=== PATIENT | female | born 1930 | race Caucasian/White ===

== ENCOUNTER → 2018-02-17 | Day surgery (SDC) | payer OTHER, BC ==
--- NOTE | 2018-02-17 21:21 | OP ---
DATE OF OPERATION: 02/17/2018 PREOPERATIVE DIAGNOSIS: Left breast mass, 7 o'clock, 5-6 cm from the nipple. POSTOPERATIVE DIAGNOSIS: Left breast mass, 7 o'clock, 5-6 cm from the nipple. PROCEDURE: Left ultrasound-guided core biopsy with clip placement. ANESTHESIA: Local. ATTENDING SURGEON: Gerson Kruse MD ESTIMATED BLOOD LOSS: Minimal. COMPLICATIONS: None. DESCRIPTION OF PROCEDURE: Patient was made aware of the risks and benefits of the procedure and consented. She was placed in supine position, and under sterile conditions with 1% lidocaine for local anesthesia, a small parish was made in the skin. Using a 13-gauge suction biopsy device via lateral approach under ultrasound guidance, multiple cores were obtained and submitted to Pathology. Likewise, under ultrasound guidance, a clip was placed into the biopsy region. Steri-Strips and sterile bandage were applied. Patient tolerated the procedure well. We will contact her with results. GERSON KRUSE M.D. [id number]
--- NOTE | 2018-02-19 12:39 | PATH ---
Surgical Pathology Report Patient Name: RAFAEL LU [facility] Rec. #: [id number] /Age/Gender: 1930 (Age: 87) / F Account: [id number] Location: Taken: 02/17/2018 Received: 02/17/2018 Reported: 02/19/2018 Physicians: Nitza Vences M.D. Alvin Chisolm, M.D. 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 Comment: Immunohistochemical stain performed and interpreted at [facility] show the carcinoma is negative for E-Cadherin, supportive of lobular phenotype. Results of Estrogen Receptor (ER) and Progesterone Receptor (TN) studies performed on block "1" at [facility] are as follows: ER (clone [id number] mouse monoclonal antibody by [employer]): >95% nuclear staining with strong intensity (Positive). TN (clone16 mouse monoclonal antibody by [employer]): ~35-40% nuclear staining with moderate to strong intensity (Positive). Positive and negative controls (internal if applicable) show appropriate results. Formalin fixation and cold ischemic times are within current ASCO/CAP recommendations for ER, TN and Her2 testing. Her2 (IHC) & Ki-67 studies are pending and will be reported separately. Electronically Signed Jackelin Malin M.D. Addendum Reported: 02/20/2018 Addendum Diagnosis Results of Her2 (IHC) & Ki-67 studies performed on block "1" at [place], [place] ([id number]) are as follows: Her2 IHC (EP3 from [employer], formerly known as [id number], using [employer] Polymer Refine detection kit): 1+ (Negative). Ki-67: ~20% (Intermediate proliferative index). Positive and negative controls (internal if applicable) show appropriate results. Jackelin Malin M.D. Gross Description Received in formalin labeled "left breast biopsy 7:00, 5-6 cm fn," is a 1.7 x 1.2 x 0.2 cm aggregate of chamorro-yellow, irregular to cylindrical portions of fibroadipose tissue. The formalin is filtered and the specimen is entirely submitted in one cassette. Time to formalin fixation: Less than one minute Total formalin fixation time: Approximately 6 hours. 02/17/2018 [facility]02/17/2018
== END | disposition home or self-care (01) ==
LOC: FRADUS-SUR 13:24
PROVIDERS: ATTEND Surgery Surgical Oncology
PROC: 0HBU3ZX Excision of Left Breast, Percutaneous Approach, Diagnostic (ICD-10-PCS; principal; 2018-02-17)
DX: C50.512 Malignant neoplasm of lower-outer quadrant of left female breast (principal); Z17.0 Estrogen receptor positive status [ER+]; N63.23 Unspecified lump in the left breast, lower outer quadrant
CPT/HCPCS: 19083; 88305-TC; 88342-TC

== ENCOUNTER 2018-03-25 08:05 | Inpatient (IN) | payer OTHER, BC ==
--- NOTE | 2018-03-18 10:18 | HP ---
Admitting History and Physical - Primary Care Physician PCP: Janak Lock - Admission Chief Complaint: left breast cancer History of Present Illness: Patient is an 87 yo female noted to incidentally have a left breast mass during a CT scan done for abdominal pain. The patient had a highly suspicious mass on mammo and US at the left 8 oclock position. The patient underwent a left US guided core bx which was positive for invasive lobular carcinoma ER pos GA pos Her 2 negative. The MRI was c/w known cancer without contralateral or multifocal dz. Patient is presenting for a left breast WE with snbx, lymph, possible ANDx. 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)), Squamous Cell Home Medications - Allergies Allergies/Adverse Reactions: Allergies Allergy/AdvReac Type Severity Reaction Status Date / Time No Known Allergies Allergy Verified 03/18/18 10:21 - Home Medications Home Medications: Ambulatory Orders Aspirin/Dipyridamole [Aspirin-Dipyridam ER 25-200 mg] 1 each PO BID 03/20/18 Calcium Carbonate/Vitamin D3 [Calcium 600 + D3 Softgel] 1 each PO BID 03/20/18 Citalopram Hydrobromide [Citalopram HBr] 40 mg PO DAILY 03/20/18 Docusate Sodium [Colace] 100 mg PO BID PRN 03/20/18 Donepezil HCl [Aricept] 10 mg PO DAILY 03/20/18 Glucosamine Sulfate Dipot Chlr [Glucosamine] 1,000 mg PO BID 03/20/18 Meclizine HCl [Antivert -] 25 mg PO TID PRN 03/20/18 Metoprolol Succinate 25 mg PO DAILY 03/20/18 Pantoprazole Sodium 40 mg PO DAILY 03/20/18 Sennosides [Senna] 17.2 mg PO HS PRN 03/20/18 Family Disease History - Family Disease History Family Disease History: CA: Mother (colorectal cancer at 56) Review of Systems - Review of Systems Constitutional: reports: No Symptoms Physical Examination Constitutional: Yes: Well Nourished, Calm Breast(s): Yes: Other (Ptotic C-cup breasts without skin changes or nipple discharge. Palpable left 6 oclock 2 cm mass without any other suspicious masses or adenopathy noted bilaterally.) Problem List - Problems (1) Breast cancer, left Code(s): C50.912 - MALIGNANT NEOPLASM OF UNSPECIFIED SITE OF LEFT FEMALE BREAST Qualifiers: Estrogen receptor status: positive Patient sex: female Assessment/Plan Plan: Left breast WE with snbx, possible andx with lymphoscintogram and nl
[2018-03-20 13:47] VITALS: BMI 26.5
[2018-03-25] MEDS ORDERED: SUCCINYLCHOLINE CHLORIDE 200 MG/10 ML VIAL ONE (14:34)
[2018-03-25] MEDS ORDERED: PROPOFOL 20 ML ONE (14:34)
[2018-03-25] MEDS ORDERED: fentaNYL CITRATE 250 MCG/5 ML VIAL ONE (14:34)
[2018-03-25] MEDS ORDERED: ceFAZolin SODIUM 1 GM VIAL ONE (14:35)
[2018-03-25] MEDS ORDERED: LIDOCAINE HCL/PF 2% SDV 5ML VIAL ONE (14:35)
[2018-03-25] MEDS ORDERED: MIDAZOLAM HCL 2 MG/2 ML SINGLE DOSE VIAL ONE (14:35)
[2018-03-25] MEDS ORDERED: DEXAMETHASONE SOD PHOSPHATE 4 MG/1 ML VIAL ONE (14:35)
[2018-03-25] MEDS ORDERED: ONDANSETRON 4 MG/2 ML VIAL ONE (14:35)
[2018-03-25] MEDS ORDERED: ONDANSETRON 4 MG/2 ML VIAL IVPB PRN (14:44)
[2018-03-25] MEDS ORDERED: oxyCODONE HCL 5 MG TABLET PO PRN (14:44)
[2018-03-25] MEDS ORDERED: SENNOSIDES 8.6MG TABLET (FP) PO PRN (14:46)
[2018-03-25] MEDS ORDERED: DOCUSATE SODIUM 100 MG CAPSULE (FP) PO PRN (14:46)
[2018-03-25] MEDS ORDERED: MECLIZINE HCL 25 MG TABLET (FP) PO PRN (14:46)
[2018-03-25] MEDS ORDERED: LIDOCAINE 1%/EPI 1:100000 (20 ML MULTI DOSE VIAL) ONE (15:26)
[2018-03-25] MEDS ORDERED: BUPIVACAINE HCL/PF 2.5 MG/ML - 30 ML VIAL IJ ONE (15:26)
[2018-03-25] MEDS ORDERED: LIDOCAINE HCL 1% PRESERVATIVE FREE - 30ML VIAL ONE (15:26)
[2018-03-25] MEDS ORDERED: GUM MASTIC/STORAX/MSAL/ALCOHOL 1 DRP DROPSBTL MC ONE (15:26)
[2018-03-25] MEDS ORDERED: ISOSULFAN BLUE 10 MG/ML VIAL SQ ONE (15:42)
[2018-03-25] MEDS ORDERED: ePHEDrine SULFATE 50 MG/1 ML AMPULE ONE (16:15)
[2018-03-25] MEDS ORDERED: DEXTROSE 5%-0.45% SALINE 1,000 ML IV SCH (17:00)
[2018-03-25] MEDS ORDERED: ONDANSETRON 4 MG/2 ML VIAL IVPUSH PRN (17:44)
[2018-03-25] MEDS ORDERED: LACTATED RINGERS SOLUTION 1,000 ML IV SCH (17:45)
[2018-03-25] MEDS ORDERED: ACETAMINOPHEN 325 MG TABLET (FP) ONE (18:10)
[2018-03-25] MEDS ORDERED: ACETAMINOPHEN 325 MG TABLET (FP) PO ONE (18:14)
[2018-03-25] MEDS ORDERED: PATIENT'S OWN MEDICATION (NON-FORMULARY) (Glucosamine Sulfate Dipot Chlr [Glucosamine] 1,0 PO SCH (22:00)
--- NOTE | 2018-03-25 23:50 | OP ---
DATE OF OPERATION: 03/25/2018 PREOPERATIVE DIAGNOSIS: Left breast cancer at 6 o'clock overlapping region. POSTOPERATIVE DIAGNOSIS: Left breast cancer at 6 o'clock overlapping region. PROCEDURE: Left breast partial mastectomy with mammographic needle localization and left axillary sentinel lymph node biopsy with tissue transfer closure 6 x 8 cm. PRIMARY SURGEON: Marily Lock MD CUSTOMER ASSOCIATE: CISCO Charles COMPLICATIONS: There were no complications. BRIEFLY: The patient is an 87-year-old, G1, P0, postmenopausal white female who has no family history of breast or ovarian cancer. The patient has a history of TIAs. She underwent a routine CAT scan, which showed a mass in the left breast measuring about 2.4 cm as well as a pancreatic mass. Mammography confirmed a suspicious mass in the 6 o'clock region of the left breast, measuring about 2 cm. MRI showed a 3-cm density in the left breast 6 o'clock region. The right breast was negative. Ultrasound-guided core biopsy of the left breast mass showed an infiltrating lobular cancer which was ER/IA-positive, HER2-negative with a Ki-67 of 20%. The patient was advised undergoing a wide excision. It was decided to hold off on workup of the pancreatic mass for now until the breast cancer was completed. The patient was advised of undergoing a partial mastectomy with sentinel lymph node biopsy. She was brought in for the procedure on March 25, 2018. DESCRIPTION OF PROCEDURE: She first underwent a lymphoscintigraphy at [facility] and a needle localization and was brought to the [facility] holding area. In the holding area, site verification was made and informed consent was obtained. She was brought into the operating room and placed on the OR table in the supine position. Venodynes were placed on the lower extremities prior to induction. She received 1 g of Ancef prior to incision. The left breast was sterilely prepped and draped in the usual fashion with the left arm prepped in the field and 3 mL of Lymphazurin blue were injected intradermally and carolina-tumor around the needle localization site. Massage was instituted. An incision was made just below the hair-bearing area of the left axilla and dissection was undertaken and the blue lymphatic was easily seen coursing to a blue hot node in the level 1 region of the left axilla with a 10-second gamma count of 5129. This was sent in formalin for permanent pathology. A second hot node was found in the level 1 region of the left axilla with a 10-second gamma count of 853. No other hot or blue nodes were found. The second node was also sent separately a sentinel lymph node number 2 in formalin to pathology for permanent section. Background counts after removal of these 2 nodes was 59. There were no other blue or hot nodes found. Hemostasis was achieved. The axial wound was then closed using interrupted 2-0 plain suture and the skin was closed using interrupted 3-0 deep dermal Vicryl suture and a running 4-0 subcuticular Biosyn suture. At this point, the wide excision was undertaken around the 6 o'clock region in the left breast. The patient was aware that she was going to have some slight volume deficit there and did not want any plastic surgery reduction. We performed a tissue transfer type of incision to allow a slight inferior reduction pattern for removal of the cancer. Incision was made in a vertical fashion, removing a paddle of skin on the lower aspect of the left breast. Dissection was undertaken around the needle localization site, removing the entire cancer with grossly free margins around the needle localization. The specimen was oriented with a long lateral, short superior suture and specimen radiographs showed removal of the clip in question. Separate margins were then taken on the superior, inferior, medial, lateral, and deep aspects with sutures marked in the biopsy cavity sides and each margin was sent separately to Pathology in formalin. At this point, the breast tissue was undermined and the lower breast tissue was brought together as a tissue transfer closure about 8 x 6 cm, allowing the breast tissue to be brought back in a vertical fashion and closing the incision in an inverted T pattern. The breast tissue was reapproximated using 2-0 plain suture. The skin was closed using interrupted 3-0 deep dermal Vicryl suture and a running 4-0 subcuticular Biosyn suture. Mastisol and Steri-Strips were applied over both the axillary and breast wound and she was placed in a surgical dressing and compressive surgical bra. The patient tolerated the procedure well. All sponge and needle counts were correct at the end of the case. ESTIMATED BLOOD LOSS: About 10 mL. CONDITION: Patient was hemodynamically stable throughout the case. She was brought to the postanesthesia care unit in stable condition. ANESTHESIA: General and was intubated during the case. The ET tube was removed at the end of the case. PLAN: The patient will be admitted for a 23-hour admit postoperatively for wound and pain control and lives in assisted living facility where she will be discharged back when she is ready. MARILY LOCK M.D. [id number]
[2018-03-26] MEDS: PANTOPRAZOLE 40 MG TABLET (FP) PO SCH (09:20)
[2018-03-26] MEDS: ACETAMINOPHEN 325 MG TABLET (FP) PO PRN ×2 (09:21→21:35)
[2018-03-26] MEDS: metoPROLOL SUCCINATE 25 MG TAB.SR.24H (FP) PO SCH (09:21)
[2018-03-26] MEDS: CITALOPRAM HYDROBROMIDE 20 MG TABLET (FP) PO SCH (09:21)
--- NOTE | 2018-03-26 09:37 | PN ---
Progress Note, Physician Chief Complaint: Left breast cancer S/P left breast wide excision sentenel node biopsy POD #1 History of Present Illness: patient is using tylenol prn for moderate pain, OOB, will need PT evaluation for ambulation - Current Medication List Current Medications: Active Medications Acetaminophen (Tylenol -) 650 mg PO Q4H PRN PRN Reason: FEVER Last Admin: 03/26/18 09:21 Dose: 650 mg Citalopram Hydrobromide (Celexa -) 40 mg PO DAILY [facility] Last Admin: 03/26/18 09:21 Dose: 40 mg Docusate Sodium (Colace -) 100 mg PO Q12H PRN PRN Reason: CONSTIPATION Donepezil HCl (Aricept -) 10 mg PO HS [facility] Dextrose/Sodium Chloride (D5-1/2ns -) 1,000 mls @ 100 mls/hr IV ASDIR [facility] Meclizine HCl (Antivert -) 25 mg PO Q8H PRN PRN Reason: DIZZINESS Metoprolol Succinate (Toprol Xl -) 25 mg PO DAILY [facility] Last Admin: 03/26/18 09:21 Dose: 25 mg Non-Formulary Medication (Glucosamine Sulfate Dipot Chlr [Glucosamine]) 1,000 mg PO BID [facility] Ondansetron HCl (Zofran Injection) 4 mg IVPB Q6H PRN PRN Reason: NAUSEA Oxycodone HCl (Roxicodone -) 5 mg PO Q4H PRN PRN Reason: PAIN LEVEL 6-10 Pantoprazole Sodium (Protonix -) 40 mg PO DAILY [facility] Last Admin: 03/26/18 09:20 Dose: 40 mg Senna (Senna -) 1 tab PO HS PRN PRN Reason: CONSTIPATION - Objective Vital Signs: Vital Signs Temperature 97.7 F 03/26/18 04:50 Pulse Rate 76 03/26/18 04:50 Respiratory Rate 16 03/26/18 04:50 Blood Pressure 123/60 03/26/18 04:50 O2 Sat by Pulse Oximetry (%) 97 03/25/18 21:00 Constitutional: Yes: No Distress Breast(s): Yes: Other (Left breast incision intact with steristrips breast and axilla no drainage or redness dressing changed) Problem List - Problems (1) Breast cancer, left Code(s): C50.912 - MALIGNANT NEOPLASM OF UNSPECIFIED SITE OF LEFT FEMALE BREAST Qualifiers: Estrogen receptor status: positive Patient sex: female Assessment/Plan continue Tylenol prn PT evaluation plan for discharge to assisted living facility [place] pending PT evaluation SVT while in bed spirometry
--- NOTE | 2018-03-26 15:11 | PN ---
Progress Note (short form) - Note Progress Note: Anesthesia post op note, POD#1 S/P Left breast wide excision.under GA.Signed off. pat seen and examined. VSS. Ambulating,. Pain well controlled. no apparent post anesthesia complications.Signed off.
[2018-03-26] MEDS ORDERED: DONEPEZIL HCL 10 MG TABLET (FP) PO SCH (22:00)
[2018-03-27] MEDS: ACETAMINOPHEN 325 MG TABLET (FP) PO PRN ×2 (05:01→10:02)
--- NOTE | 2018-03-27 09:02 | PN ---
Progress Note, Physician Chief Complaint: Left breast cancer S/P Left breast wide excision sentenel node biopsy POD#2 History of Present Illness: patient is OOB eating, pain cntrolled with tylenol prn ready for discharge to assisted living facility. Patient had PT evaluation and is ambulating. - Current Medication List Current Medications: Active Medications Acetaminophen (Tylenol -) 650 mg PO Q4H PRN PRN Reason: FEVER Last Admin: 03/27/18 05:01 Dose: 650 mg Citalopram Hydrobromide (Celexa -) 40 mg PO DAILY [facility] Last Admin: 03/26/18 09:21 Dose: 40 mg Docusate Sodium (Colace -) 100 mg PO Q12H PRN PRN Reason: CONSTIPATION Donepezil HCl (Aricept -) 10 mg PO HS [facility] Last Admin: 03/26/18 21:36 Dose: 10 mg Dextrose/Sodium Chloride (D5-1/2ns -) 1,000 mls @ 100 mls/hr IV ASDIR [facility] Meclizine HCl (Antivert -) 25 mg PO Q8H PRN PRN Reason: DIZZINESS Metoprolol Succinate (Toprol Xl -) 25 mg PO DAILY [facility] Last Admin: 03/26/18 09:21 Dose: 25 mg Ondansetron HCl (Zofran Injection) 4 mg IVPB Q6H PRN PRN Reason: NAUSEA Oxycodone HCl (Roxicodone -) 5 mg PO Q4H PRN PRN Reason: PAIN LEVEL 6-10 Pantoprazole Sodium (Protonix -) 40 mg PO DAILY [facility] Last Admin: 03/26/18 09:20 Dose: 40 mg Senna (Senna -) 1 tab PO HS PRN PRN Reason: CONSTIPATION - Objective Vital Signs: Vital Signs Temperature 97.9 F 03/27/18 05:31 Pulse Rate 73 03/27/18 05:31 Respiratory Rate 19 03/27/18 05:31 Blood Pressure 147/72 03/27/18 05:31 O2 Sat by Pulse Oximetry (%) 95 03/27/18 07:59 Constitutional: Yes: No Distress Breast(s): Yes: Other (left breast and axillary incision intact with steristrips no drainage or signs of infection) Problem List - Problems (1) Breast cancer, left Code(s): C50.912 - MALIGNANT NEOPLASM OF UNSPECIFIED SITE OF LEFT FEMALE BREAST Qualifiers: Estrogen receptor status: positive Patient sex: female Assessment/Plan ready for discharge to assisted living facility tylenol BID 650 prn start aggrenox today wear bra
[2018-03-27 10:02] VITALS: BP 132/48; PULSE 69; TEMP 98.3
[2018-03-27] MEDS: metoPROLOL SUCCINATE 25 MG TAB.SR.24H (FP) PO SCH (10:02)
[2018-03-27] MEDS: CITALOPRAM HYDROBROMIDE 20 MG TABLET (FP) PO SCH (10:03)
[2018-03-27] MEDS: PANTOPRAZOLE 40 MG TABLET (FP) PO SCH (10:03)
--- NOTE | 2018-03-30 19:04 | PATH ---
Surgical Pathology Report Patient Name: RAFAEL LU Med. Rec. #: [id number] /Age/Gender: 1930 (Age: 87) / F Account: [id number] Location: [facility]G Taken: 03/25/2018 Received: 03/25/2018 Reported: 03/30/2018 Physicians: Janak Lock M.D. Specimen(s) Received A: SENTINEL LYMPH NODE #1 LEFT BREAST B: SENTINEL LYMPH NODE #2 LEFT BREAST C: LEFT BREAST WIDE EXCISION D: LEFT BREAST SUPERIOR MARGIN E: LEFT BREAST LATERAL MARGIN F: LEFT BREAST INFERIOR MARGIN G: LEFT BREAST MEDIAL MARGIN H: LEFT BREAST DEEP MARGIN Clinical History Invasive ILC Final Diagnosis A. SENTINEL LYMPH NODE #1, LEFT BREAST, COUNT [id number]: ONE LYMPH NODE, NEGATIVE FOR METASTATIC CARCINOMA ON H&E STAINED SECTIONS AND CYTOKERATIN (AE1/3) IMMUNOSTAIN PERFORMED AT [facility] (0/1). B. SENTINEL LYMPH NODE #2, LEFT BREAST, COUNT [id number]: ONE LYMPH NODE, NEGATIVE FOR METASTATIC CARCINOMA ON H&E STAINED SECTIONS AND CYTOKERATIN (AE1/3) IMMUNOSTAIN PERFORMED AT [facility] (0/1). C. LEFT BREAST, WIDE EXCISION: INVASIVE LOBULAR CARCINOMA, PREDOMINANTLY PLEOMORPHIC TYPE, POORLY DIFFERENTIATED (TUBULE SCORE: 3/3, NUCLEAR GRADE: 3/3, MITOTIC SCORE: 2/3, TOTAL SCORE 8/9, ELIEL GRADE3), MEASURING 2.5 CM IN GREATEST DIMENSION, GROSSLY AND MICROSCOPICALLY. SEE COMMENT. LOBULAR CARCINOMA IN SITU (LCIS), PLEOMORPHIC TYPE, WITH ASSOCIATED NECROSIS. SURGICAL MARGINS ARE UNINVOLVED BY CARCINOMA. THE INVASIVE CARCINOMA IS AT 6 MM FROM THE CLOSEST MARGIN (INFERIOR MARGIN). LCIS PLEOMORPHIC TYPE IS AT 5 MM FROM THE CLOSEST MARGIN (INFERIOR MARGIN). SEE SPECIMEN D TO H FOR FINAL MARGINS. SKIN IS UNINVOLVED BY CARCINOMA. LYMPHOVASCULAR INVASION NOT IDENTIFIED. PERINEURAL INVASION NOT IDENTIFIED. REACTIVE CHANGES AT PRIOR BIOPSY SITE IDENTIFIED. PATHOLOGIC STAGE (pTNM): pT2 pN0 SEE INVASIVE CARCINOMA CASES SUMMARY BELOW. COMMENT: MAJORITY OF THE INVASIVE LOBULAR CARCINOMA IS PLEOMORPHIC TYPE. FOCAL CLASSICAL TYPE WITH TRABECULAR PATTERN IS SEEN AT THE PERIPHERY OF THE TUMOR. D. LEFT BREAST SUPERIOR MARGIN, EXCISION: BREAST TISSUE WITH FOCAL LOBULAR CARCINOMA IN SITU (LCIS), CLASSICAL TYPE. THE REST OF THE BREAST TISSUE SHOWS BENIGN FIBROCYSTIC CHANGE. Comment: Immunohistochemical stained slide (block D2) performed and interpreted at [facility] demonstrate tumor cells to be negative for E-cadherin. The morphology and immunophenotype support a diagnosis of classical type LCIS. Positive and negative controls (internal if applicable) show appropriate results. E. LEFT BREAST LATERAL MARGIN, EXCISION: BENIGN BREAST TISSUE. F. LEFT BREAST INFERIOR MARGIN, EXCISION: BENIGN BREAST TISSUE. Comment: Immunohistochemical stained slide E-cadherin performed and interpreted at [facility] highlights the benign ductal type epithelial cells. Positive and negative controls (internal if applicable) show appropriate results. G. LEFT BREAST MEDIAL MARGIN, EXCISION: BENIGN BREAST TISSUE. Comment: Immunohistochemical stained slide E-cadherin performed and interpreted at [facility] highlights the benign ductal type epithelial cells. Positive and negative controls (internal if applicable) show appropriate results. H. LEFT BREAST DEEP MARGIN, EXCISION: BENIGN BREAST TISSUE AND SKELETAL MUSCLE. Comments Breast Invasive Carcinoma: Surgical Pathology Case Summary (Based on AJCC TNM 8 th edition) Procedure _x_ Excision (less than total mastectomy) Specimen Laterality _x_ Left Tumor Size _x_ Greatest dimension of largest invasive focus >1 mm (specify exact measurement) (millimeters): 25 mm Histologic Type _x_ Invasive lobular carcinoma Histologic Grade (Trafford Histologic Score) Glandular (Acinar)/Tubular Differentiation _x_ Score 3 (<10% of tumor area forming glandular/tubular structures) Nuclear Pleomorphism _x_ Score 3 Mitotic Rate _x_ Score 2 Overall Grade _x_ Grade 3 (scores of 8 or 9) Tumor Focality _x_ Single focus of invasive carcinoma Ductal Carcinoma In Situ (DCIS) _x_ No DCIS in specimen Margins Invasive Carcinoma Margins _x_ Uninvolved by invasive carcinoma Distance from closest margin (millimeters): 6 mm Closest margin: inferior margin, see specimen F for final margin. DCIS Margins _x_ No DCIS in specimen Regional Lymph Nodes Number of Lymph Nodes with Macrometastases (>2 mm):0 Number of Lymph Nodes with Micrometastases (>0.2 mm to 2 mm and/or >200 cells): 0 Number of Lymph Nodes with Isolated Tumor Cells (=0.2 mm and =200 cells): 0 Number of Lymph Nodes Examined: 2 Number of [place] Nodes Examined: 2 Treatment Effect _x_ No known presurgical therapy Lymphovascular Invasion _x_ Not identified Pathologic Stage Classification (pTNM, AJCC 8th Edition) Primary Tumor (Invasive Carcinoma) (pT) _x_ pT2: Tumor >20 mm but =50 mm in greatest dimension Regional Lymph Nodes (pN) Modifier (required only if applicable) _x_ (sn): [place] node(s) evaluated. If 6 or more nodes (sentinel or nonsentinel) are removed, this modifier should not be used. Category (pN) _x_ pN0: No regional lymph node metastasis identified or ITCs only Biomarker Studies Results of ER and MI studies performed on prior biopsy ([id number]) at [facility] are as follows: ER (clone [id number] mouse monoclonal antibody by [employer]): >95% nuclear staining with strong intensity (Positive). MI (clone16 mouse monoclonal antibody by [employer]): ~35-40% nuclear staining with moderate to strong intensity (Positive). Results of Her2 (IHC) & Ki-67 studies performed prior biopsy ([id number]) at [place], [place] ([id number]) are as follows: Her2 IHC (EP3 from [employer], formerly known as [id number], using [employer] Refine detection kit): 1+ (Negative) Ki67: ~20% (intermediate proliferative index) Positive and negative controls (internal if applicable) show appropriate results. Formalin fixation and cold ischemic times are within current ASCO/CAP recommendations for ER, MI and Her2 testing. Electronically Signed Fei Landrum M.D. Gross Description A. Received in formalin labeled "sentinel lymph node #1 left breast," is a 1.0 cm in greatest dimension chamorro lymph node with attached fat. The specimen is submitted in toto in one cassette. B. Received in formalin labeled "sentinel lymph node #2 left breast," is a 0.3 cm greatest dimension chamorro lymph node with attached fat. The specimen is submitted in toto in one cassette. C. Received in formalin, labeled "left breast wide excision," is a 6.0 x 5.5 x 3.2 cm. chamorro-yellow, irregular, portion of fibroadipose tissue with a needle localization wire present. There is a short suture marking the superior aspect and a long suture marking the lateral aspect, per the surgeon. The anterior surface displays a 4.4 x 3.5 cm chamorro, triangular, unremarkable portion of skin. The specimen is inked as follows: Superior blue; inferior green; lateral red; medial yellow; deep black. The specimen is serially sectioned from medial to lateral. Sectioning reveals a 2.5 x 1.8 x 1.5 cm chamorro, indurated mass. The mass is 0.6 cm from the superior margin, 0.8 cm from the inferior margin and 1.0 cm from the skin. [employer] sections are submitted in 7 cassettes as follows: 1-full face section of mass; 2-mass to superior margin; 3-mass to inferior margin; 4-mass to skin; 5-deep margin; 6-lateral margin; 7-medial margin. Time to formalin fixation: 3 minutes Total formalin fixation time: Approximately 25 hours. D. Received in formalin labeled "superior margin left breast," is a 2.0 x 2.0 x 1.0 cm portion of fibroadipose tissue with a suture marking the biopsy cavity side, per the surgeon. The new margin is inked black and the specimen is serially sectioned. The specimen is entirely submitted in 3 cassettes. E. Received in formalin labeled "lateral margin left breast," is a 3.0 x 1.7 x 1.0 cm portion of fibroadipose tissue with a suture marking the biopsy cavity side, per the surgeon. The new margin is inked black and the specimen is serially sectioned. The specimen is entirely submitted in 3 cassettes. F. Received in formalin labeled "inferior margin left breast," is a 2.6 x 2.5 x 0.7 cm portion of fibroadipose tissue with a suture marking the biopsy cavity side, per the surgeon. The new margin is inked black and the specimen is serially sectioned. The specimen is entirely submitted in 3 cassettes. G. Received in formalin labeled "medial margin left breast," is a 2.3 x 1.6 x 0.8 cm portion of fibroadipose tissue with a suture marking the biopsy cavity side, per the surgeon. The new margin is inked black and the specimen is serially sectioned. The specimen is entirely submitted in 3 cassettes. H. Received in formalin labeled "deep margin left breast," is a 2.2 x 1.7 x 0.8 cm portion of fibroadipose tissue with a suture marking the biopsy cavity side, per the surgeon. The new margin is inked black and the specimen is serially sectioned. The specimen is entirely submitted in 2 cassettes. 03/26/2018 saudi03/26/2018
== END 2018-03-27 13:08 | disposition home or self-care (01) | DRG 580 ==
LOC: FM/S 08:05
PROVIDERS: ADMIT Surgery Surgical Oncology; ATTEND Surgery Surgical Oncology
PROC: 0JX60ZZ Transfer Chest Subcutaneous Tissue and Fascia, Open Approach (ICD-10-PCS; 2018-03-25)
PROC: 0HBU0ZZ Excision of Left Breast, Open Approach (ICD-10-PCS; principal; 2018-03-25 16:16)
PROC: 07B60ZX Excision of Left Axillary Lymphatic, Open Approach, Diagnostic (ICD-10-PCS; 2018-03-25 16:16)
DX: C50.912 Malignant neoplasm of unspecified site of left female breast (principal); I47.1 Supraventricular tachycardia; F03.90 Unspecified dementia, unspecified severity, without behavioral disturbance, psychotic disturbance, mood disturbance, and anxiety; I10 Essential (primary) hypertension; F32.9 Major depressive disorder, single episode, unspecified; H91.90 Unspecified hearing loss, unspecified ear; Z85.828 Personal history of other malignant neoplasm of skin; K59.00 Constipation, unspecified; Z78.0 Asymptomatic menopausal state; Z86.73 Personal history of transient ischemic attack (TIA), and cerebral infarction without residual deficits
CPT/HCPCS: 19281; 78195-TC; 88307-TC; 94760; 97116-GP; 97162-GP; A9541